=== PATIENT | female | born 1945 | race Hispanic/Latino ===

== ENCOUNTER 2019-06-23 09:35 | Emergency (ER) | payer OTHER ==
[~2019-06-23] VITALS: Ht 157.5 cm; Wt 91.6 kg
[~2019-06-23 09:35] MED LIST: ALENDRONATE SOD70 MG PO; AMLODIPINE BESYL5 MG PO; ASPIR 8181 MG; ASPIR 8181 MG PO; ASPIRIN ENTERIC81 MG; ATORVASTATIN CA20 MG PO; CELEBREX100 MG PO; CELEBREX200 MG; CLOPIDOGREL75 MG PO; COLACE100 MG PO; DILTIA XT120 MG; FOLIC ACID0.4 MG; FOLIC ACID1 MG PO; IBUPROFEN400 MG PO; LEVOTHYROXINE50 MCG PO; LOPRESSOR25 MG; LOSARTAN-HCTZ1 EAC2; LOSARTAN-HCTZ1 EAC2 PO; MECLIZINE HCL12.5 MG PO; METFORMIN HCL500 MG PO; METHOTREXATE2.5 MG PO; METOPROLOL TART25 MG PO; NEURONTIN100 MG PO; NEXIUM40 MG; NEXIUM40 MG PO; NORCO 5-325 TA1 EACH PO; NORVASC10 MG PO; PREDNISONE5 MG PO; TIZANIDINE HCL4 M1 PO; XANAX0.25 MG PO
--- OUTSIDE RECORDS SUMMARY | 2019-06-23 09:40 | XMS REPORT ---
Author Author [facility] Address Unknown Phone Unavailable Care Team Providers Care Drag Out Man Name Role Phone Allie COOK Unavailable Unavailable Problems This patient has no known problems. Allergies, Adverse Reactions, Alerts This patient has no known allergies or adverse reactions. Medications This patient has no known medications. Results Test Description Test Time Test Comments Text Results Atomic Results Result Comments SCR MAMM BILATERAL SCOTTIE CAD DIGITAL 2018-11-29 10:55:33 - SCR MAMM BILATERAL SCOTTIE CAD DIGITALBILATERAL DIGITAL SCREENING MAMMOGRAM 3D/2D WITH CAD: 11/28/2018CLINICAL: Asymptomatic. Digital breast tomosynthesis was performed in addition to routine CC and MLO views. Current mammographic images were evaluated by either a TouchPo Android POS M-Vu or a DocLogix ImageChecker CAD (computer aided detection system). Comparison is made to exams dated 11/22/2017 mammogram, 017 mammogram, and 09/23/2015 mammogram - [facility]. The tissue of both breasts is predominantly fatty. There are benign vascular calcifications in both breasts. There also is a benign mass and a calcification in the right breast. Additionally, there are benign calcifications and an intramammary node in the left breast. No suspicious mass, architectural distortion, malignant type calcification, or lymph node abnormality detected. Breast architecture is stable compared to prior exams.IMPRESSION: BENIGNThere is no mammographic evidence of malignancy. Resume annual screening mammography in one year. Carlos Jernigan M.D. ss/:11/29/2018 10:55:33 Cap Inspector: Ca SHEPARD, [facility] sent: BIRADS 1-2 Normal Mammogram BI-RADS: [address] CHEST [address] [address] Patient Name: GISSELL LO MR #: [id number] : 1945 Age/Sex: 72/F Req #: [id number] Adm Physician: Ordered by: SOLIS COOK MD Report #: [id number] Location: ER Room/Bed: Procedure: [id number] CT/CT CHEST W Exam Date: 07/25/17 Exam Time: 1330 REPORT STATUS: Signed CT chest pulmonary embolism protocol CPT code: 67832 INDICATION: Tachycardia, hypotension, dizziness and back pain TECHNIQUE: Thin collimation axial images obtained through the level of the pulmonary arteries with additional imaging through the chest following the uneventful administration of 100 cc of low osmolar, nonionic intravenous contrast. Images reconstructed into coronal and sagittal MIPs for complete evaluation of the tortuous and overlapping pulmonary vascular structures and to reduce patient radiation dose. RADIATION DOSE: Total DLP: 490 mGy*cm Estimated effective dose: (DLP x 0.015 x size factor) mSv CTDIvol has been reviewed. It is below the limits set by the Radiation Protocol Committee (RPC). COMPARISON: CTPA 07/17/2012. FINDINGS: Pulmonary artery: No filling defects are appreciated within the main, left, right, lobar or visualized segmental pulmonary arteries to suggest embolism. The right main pulmonary artery measures 3 cm in diameter. The left main portal artery measures 3.2 cm in diameter. The pulmonary trunk measures 2.9 cm in diameter. Aorta: The thoracic aorta is not aneurysmal. The timing of the contrast bolus is for the pulmonary artery. There are diffuse atherosclerotic calcifications. Lymph nodes: No enlarged axillary, supraclavicular, mediastinal, or hilar lymph nodes. Thyroid: Normal in size without mass in the visualized parenchyma.. Mediastinum: The heart is enlarged with coronary artery calcifications. No pericardial effusion. There is a small hiatal hernia. Lungs: Right Lung: Diffusely hyperinflated. No airspace opacities. There is diffuse bronchial wall thickening. Left Lung: Diffusely hyperinflated. No airspace opacities. There is mild bronchial wall thickening. Mild tracheobronchomalacia is present. No filling defects in the tracheobronchial tree Pleura: No pleural effusion or pleural based mass.. Abdomen: The gallbladder is absent. Visualized portions of the upper abdomen demonstrate no evidence of mass.. Bones: There are moderate degenerative changes of the spine. No compression deformities. No lytic or blastic lesions. Soft tissues: Mass in the medial right breast measures 11 mm (previously, 1.3 x 2.1 cm). No new masses have developed. IMPRESSION: 1. No evidence of pulmonary embolus. Prominent pulmonary arteries are suggestive of pulmonary artery hypertension. 2. COPD and bronchial wall thickening suggestive of chronic bronchitis. No pulmonary infiltrates. Mild tracheobronchomalacia. 3. Small hiatal hernia. Cholecystectomy. 4. Mass in the right breast is smaller. Signed by: Dr. Rosey Brock MD on 07/25/2017 2:23 PM Dictated By: ROSEY BROCK MD 1423 Transcribed By: CHRISTOPHER on 07/25/17 1423 COPY TO: SOLIS COOK MD CHEST SINGLE (PORTABLE) [place] [address] Patient Name: GISSELL LO MR #: [id number] : 1945 Age/Sex: 72/F Req #: [id number] Adm Physician: Ordered by: SOLIS COOK MD Report #: [id number] Location: ER Room/Bed: Procedure: [id number] DX/CHEST SINGLE (PORTABLE) Exam Date: 07/25/17 Exam Time: 1225 REPORT STATUS: Signed Portable chest x-ray INDICATION: Pain COMPARISON: Report of chest x-ray performed 07/17/2012; images could not be retrieved for review. FINDINGS: Frontal view of the chest obtained at 1212 hours. The cardiac silhouette is normal. The pulmonary vascular markings are normal. The lungs demonstrate no mass or infiltrate. The costophrenic angles are sharp. There is no pneumothorax. The osseous structures are intact and normal in morphology. IMPRESSION: No acute cardiopulmonary process. Signed by: Dr. Rosey Brock MD on 07/25/2017 12:54 PM Dictated By: ROSEY BROCK MD 1257 Transcribed By: CHRISTOPHER on 07/25/17 1253 COPY TO: SOLIS COOK MD
[2019-06-23] MEDS ORDERED: TETANUS/DIPHTHERIA TOX ADULT 0.5 ML SYR IM ONE (10:30)
[2019-06-23] MEDS ORDERED: ONDANSETRON HCL INJ 2MG/ML 2ML 2 MG/ML VIAL IV NR (10:30)
[2019-06-23] MEDS ORDERED: SODIUM CHLORIDE 0.9% 1000ML 1,000 ML IV ONE (10:30)
[2019-06-23] MEDS ORDERED: MORPHINE SULFATE 5 MG/ML VIAL IV NR (10:30)
[2019-06-23] MEDS ORDERED: LIDOCAINE 1% W/EPINEPHRINE 20 ML VIAL INJ ONE (10:45)
--- NOTE | 2019-06-23 10:47 | NUR ---
REFUSED PIV. EXPLAINED BY FAMILY IN [place]. PT INFORMED OF NEED FOR IV FOR IV MEDS FOR PAIN. PT CONTINUES TO REFUSE. MD NOTIFIED AND WILL CHG MEDS TO IM
--- NOTE | 2019-06-23 11:09 | Diagnostic Imaging Report ---
History: Fall, pain Comparison studies:None Technique: Axial images were obtained from the brain, face and cervical spine. Coronal and sagittal reconstructions obtained from the axial data. Dose modulation, iterative reconstruction, and/or weight based adjustment of the mA/kV was utilized to reduce the radiation dose to as low as reasonably achievable. Findings: Head CT: Scalp/skull: Frontoparietal scalp hematoma and laceration on the left measures up to 1.6 cm in depth. An additional laceration without underlying hematoma within the midline left frontal scalp is also demonstrated just above the left superior orbital rim. No fractures, blastic or lytic lesions. Extra-axial spaces: No masses. No fluid collections. Brain sulci: Mildly prominent. Ventricles: Normal in size and configuration. No hydrocephalus. Parenchyma: No abnormal densities. No masses, hemorrhage, acute or chronic cortical vascular insults. Sellar/suprasellar region: No abnormalities Craniocervical junction: Patent foramen magnum. No Chiari one malformation. Incidental findings: Calcifications of the carotid siphons. Maxillofacial CT: Soft tissues: Left frontal scalp laceration as described above. Small amount of soft tissue swelling overlying the left superior orbital rim. Bones: No fractures or bony abnormalities. . Orbits: No abnormalities. Paranasal sinuses: Clear. Cervical spine CT: Airway: Patent. Fractures: None. Soft tissues: No gross abnormalities. Atlantoaxial articulation: Intact. Alignment: Normal lordosis. No scoliosis. Retrolisthesis of C3 on C4. Cervicomedullary junction: No abnormalities. The foramen magnum is patent. Vertebrae: No infection or neoplasm. Degenerative changes: Multilevel cervical spondylosis with moderate disc height loss at C3-C4 and C6-C7. Posterior disc osteophyte complexes, facet arthrosis, and uncovertebral hypertrophy contribute to mild right neural foraminal stenosis at C4-C5 and mild bilateral neural foraminal stenosis C6-C7. No osseous compromise of the spinal canal. IMPRESSION: Head CT: 1. No acute intracranial abnormalities, particularly no hemorrhage. 2. 1.6 cm left frontal parietal scalp hematoma and laceration without underlying fracture. Facial CT: 1. Left superior orbital rim soft tissue swelling and left frontal laceration without underlying fracture. Cervical spine CT: 1. No acute osseous abnormality. 2. Cannot adequately evaluate for ligament, spinal cord and or vascular abnormalities. The images and preliminary report provided by the neuroradiology fellow were reviewed and a final report issued by Dr. Mor?n neuroradiology faculty on 06/23/2019 at 3:05 PM. Signed by: Dr. Stephanie Spencer M.D. on 06/23/2019 3:07 PM
[2019-06-23] MEDS ORDERED: MORPHINE SULFATE INJ 4 MG/ML INJ 1ML IV PRN (11:30)
[2019-06-23] MEDS ORDERED: ONDANSETRON HCL 4 MG ORAL DISINTEGRATING TAB PO NR (11:30)
[2019-06-23] MEDS ORDERED: MORPHINE SULFATE INJ 4 MG/ML INJ 1ML IM PRN (11:30)
--- NOTE | 2019-06-23 13:20 | Diagnostic Imaging Report ---
EXAMINATION: CHEST SINGLE (NOT PORTABLE) INDICATION: Trauma COMPARISON: None FINDINGS: LINES/TUBES:EKG leads overlie the chest. LUNGS:The lungs are moderately inflated. No focal consolidation or pulmonary edema. PLEURA:No pleural effusion or pneumothorax. MEDIASTINUM:The cardiomediastinal silhouette appears normal in size and shape. Atherosclerotic calcifications of the thoracic aorta. BONES/SOFT TISSUES:No acute osseous injury. ABDOMEN:No free air under the diaphragm. IMPRESSION: No evidence of acute osseous injury to the thorax. Clear lungs. Signed by: Aramis Chambers MD on 06/23/2019 1:17 PM
--- NOTE | 2019-06-23 13:23 | Diagnostic Imaging Report ---
EXAMINATION: SHOULDER LEFT COMPLETE, HUMERUS LEFT 2+VIEWS INDICATION: Trauma COMPARISON: None FINDINGS: AP radiograph of the left shoulder and AP and lateral radiographs of the left humerus were obtained. No acute fracture or dislocation. Alignment is anatomic. The soft tissues appear unremarkable. For intrathoracic findings please refer to the dedicated concurrently performed and reported chest radiograph. IMPRESSION: No acute osseous injury of the left shoulder or humerus. Signed by: Aramis Chambers MD on 06/23/2019 1:19 PM
--- NOTE | 2019-06-23 13:24 | Diagnostic Imaging Report ---
EXAMINATION: SP LUMBAR, COMPLETE MIN 4VW INDICATION: Trauma COMPARISON: None FINDINGS: AP, lateral and oblique images of the lumbar spine were obtained. No compression fracture. Vertebral body heights are well-maintained. Alignment is anatomic. There are multilevel degenerative changes of the lumbar spine with mild disc space narrowing, osteophyte formation, and facet arthropathy at the lower lumbar spine. Nonobstructive bowel gas pattern. Status post cholecystectomy. IMPRESSION: No acute osseous injury of the lumbar spine. Degenerative changes as above. Signed by: Aramis Chambers MD on 06/23/2019 1:21 PM
--- NOTE | 2019-06-23 13:26 | Diagnostic Imaging Report ---
EXAMINATION: HIPS BILAT TWO VWS(+/- PELVIS) INDICATION: Trauma COMPARISON: None FINDINGS: AP and frog-leg views of both hips and AP view of the pelvis were obtained. No acute fracture or dislocation. Alignment is anatomic. 4 findings of the lumbar spine, please refer to the concurrently performed and reported lumbar spine radiograph report. IMPRESSION: No acute osseous injury of the hips or pelvis. Signed by: Aramis Chambers MD on 06/23/2019 1:23 PM
--- NOTE | 2019-06-23 13:28 | Diagnostic Imaging Report ---
EXAMINATION: KNEE LEFT THREE VIEWS INDICATION: Trauma COMPARISON: None FINDINGS: AP and lateral images of the left knee were obtained. No acute fracture or dislocation. Alignment is anatomic. Moderate tricompartmental degenerative changes with joint space narrowing and osteophyte formation. No substantial knee joint effusion. IMPRESSION: No acute osseous injury of the left knee. Moderate tricompartmental degenerative changes as above. Signed by: Aramis Chambers MD on 06/23/2019 1:25 PM
[2019-06-23] MEDS ORDERED: HYDROCODONE/APAP 5MG-325MG TAB PO STA (13:42)
[2019-06-23 14:37] VITALS: BP 141/86
== END 2019-06-23 14:39 | disposition home or self-care (01) ==
LOC: ER 09:35
DX: S01.81XA Laceration without foreign body of other part of head, initial encounter (principal); S06.0X0A Concussion without loss of consciousness, initial encounter; S40.012A Contusion of left shoulder, initial encounter; S16.1XXA Strain of muscle, fascia and tendon at neck level, initial encounter; S80.02XA Contusion of left knee, initial encounter; Z23 Encounter for immunization; S39.012A Strain of muscle, fascia and tendon of lower back, initial encounter; Y92.009 Unspecified place in unspecified non-institutional (private) residence as the place of occurrence of the external cause; W01.0XXA Fall on same level from slipping, tripping and stumbling without subsequent striking against object, initial encounter; Y93.01 Activity, walking, marching and hiking; I10 Essential (primary) hypertension; E11.9 Type 2 diabetes mellitus without complications; Z79.84 Long term (current) use of oral hypoglycemic drugs
CPT/HCPCS: 12053; 70450; 70486; 71045; 72110; 72125; 73030; 73060; 73521; 73562; 90471; 90714; 99284; J2270; Q0162

== ENCOUNTER 2019-12-02 11:06 | Emergency (ER) | payer OTHER ==
[~2019-12-02] VITALS: Ht 157.5 cm; Wt 91.6 kg
--- NOTE | 2019-12-02 12:27 | Diagnostic Imaging Report ---
Examination: Single AP view of the chest. COMPARISON: Portable chest 06/23/2019 INDICATION: Patient not feeling well IMPRESSION: 1. Lines and Tubes: None 2. Lungs are well-inflated. Patchy perihilar opacities with mild bronchial wall thickening, which may reflect bronchitis. No consolidation or effusion. 3. Cardiomediastinal silhouette is normal. Pulmonary vasculature is normal. 4. No acute bony abnormalities. Signed by: Dr. Gab Marr M.D. on 12/02/2019 12:24 PM
[2019-12-02 12:30] LABS: BASOPHILS # (AUTO) 0.1 (0.0-0.1); BASOPHILS % 0.6 % (0.0-1.0); EOSINOPHILS # (AUTO) 0.2 (0.0-0.4); EOSINOPHILS % 1.9 % (0.0-6.0); HEMATOCRIT 34.9 % (34.2-44.1); HEMOGLOBIN 11.3 g/dL (12.0-16.0); LYMPHOCYTES # (AUTO) 1.9 (1.0-3.2); LYMPHOCYTES % 23.7 % (18.0-39.1); MEAN CORPUSCULAR HEMOGLOBIN 30.1 pg (28-32); MEAN CORPUSCULAR HGB CONC 32.4 g/dL (31-35); MEAN CORPUSCULAR VOLUME 93.1 fL (81-99); MONOCYTES # (AUTO) 0.7 (0.2-0.8); MONOCYTES % 8.5 % (4.4-11.3); NEUTROPHILS # (AUTO) 5.1 (2.1-6.9); PLATELET COUNT 189 x10e3/uL (140-360); RED BLOOD COUNT 3.75 x10e6/uL (3.6-5.1); RED CELL DISTRIBUTION WIDTH 16.2 % (11.7-14.4)
[2019-12-02] MEDS: SODIUM CHLORIDE 0.9% 500ML 500 ML IV STA (12:40)
[2019-12-02 12:43] LABS: INR 0.91; PROTHROMBIN TIME 12.8 seconds (11.9-14.5)
[2019-12-02 12:44] LABS: PARTIAL THROMBOPLASTIN TIME 17.6 seconds (23.8-35.5)
[2019-12-02 12:45] LABS: CALCIUM 9.8 mg/dL (8.4-10.2); POTASSIUM 3.8 mmol/L (3.5-5.1)
[2019-12-02 12:59] LABS: ALBUMIN 3.7 g/dL (3.5-5.0); ALBUMIN/GLOBULIN RATIO 1.2 (0.8-2.0); ANION GAP 10.8 mmol/L (8-16); CREATININE, SERUM 1.04 mg/dL (0.57-1.11)
[2019-12-02 13:06] LABS: CREATINE KINASE MB 1.7 ng/mL (0-5.0)
[2019-12-02] MEDS: METOPROLOL TARTRATE INJ 1 MG/ML VIAL IV ONE (13:52)
--- NOTE | 2019-12-02 13:57 | NUR ---
5MG IV METOPROLOL GIVEN SIVP, PT REMAINS IN A-FLUTTER RATE OF 102 BP: 114/60.
--- NOTE | 2019-12-02 14:06 | NUR ---
Nestor Mejia SALES REPRESENTATIVE DOOR TO DOOR, Dang-anyier is pts baseline rythm and no further intervention needed. Pt ready for DC home. Pt verbalized understanding of ED dc, piv dc'd, cath intact.
[2019-12-02 14:08] VITALS: BP 104/73
== END 2019-12-02 14:33 | disposition home or self-care (01) ==
LOC: ER 11:06
DX: J02.9 Acute pharyngitis, unspecified (principal); K21.0 Gastro-esophageal reflux disease with esophagitis; I48.20 Chronic atrial fibrillation, unspecified
CPT/HCPCS: 36415; 71045; 80053; 82550; 82553; 84484; 85025; 85610; 85730; 93005; 99284; J7040

== ENCOUNTER 2021-10-11 14:28 | Emergency (ER) | payer MEDICARE, OTHER ==
[~2021-10-11] VITALS: Ht 157.5 cm; Wt 91.6 kg
[2021-10-11 16:12] VITALS: BP 152/80
== END 2021-10-11 16:00 | disposition home or self-care (01) ==
LOC: ER 14:45
DX: R41.0 Disorientation, unspecified (principal); I10 Essential (primary) hypertension; E11.9 Type 2 diabetes mellitus without complications; E03.9 Hypothyroidism, unspecified; E78.5 Hyperlipidemia, unspecified; F41.9 Anxiety disorder, unspecified; E78.00 Pure hypercholesterolemia, unspecified
CPT/HCPCS: 70450; 99283

== ENCOUNTER 2022-09-28 06:23 | Observation (INO) | payer MEDICARE ==
[2022-09-25 09:32] LABS: BASOPHILS # (AUTO) 0.1 (0.0-0.1); BASOPHILS % 1.1 % (0.0-1.0); EOSINOPHILS # (AUTO) 0.2 (0.0-0.4); EOSINOPHILS % 3.7 % (0.0-6.0); HEMATOCRIT 38.1 % (34.2-44.1); HEMOGLOBIN 11.2 g/dL (12.0-16.0); LYMPHOCYTES # (AUTO) 1.1 (1.0-3.2); LYMPHOCYTES % 24.6 % (18.0-39.1); MEAN CORPUSCULAR HEMOGLOBIN 28.1 pg (28-32); MEAN CORPUSCULAR HGB CONC 29.4 g/dL (31-35); MEAN CORPUSCULAR VOLUME 95.5 fL (81-99); MONOCYTES # (AUTO) 0.6 (0.2-0.8); MONOCYTES % 12.9 % (4.4-11.3); NEUTROPHILS # (AUTO) 2.7 (2.1-6.9); NEUTROPHILS % 57.7 % (38.7-80.0); PLATELET COUNT 231 x10e3/uL (140-360); RED BLOOD COUNT 3.99 x10e6/uL (3.6-5.1); RED CELL DISTRIBUTION WIDTH 17.8 % (11.7-14.4)
[~2022-09-28] VITALS: Ht 154.9 cm; Wt 83.5 kg
[~2022-09-28 06:23] MED LIST changes: +CETIRIZINE HCL10 MG PO; +CLONIDINE HCL0.1 MG PO; +ELIQUIS5 MG PO; +FEROSUL325 MG PO; +FUROSEMIDE20 MG PO; +LOSARTAN POTAS100 MG PO; +METOPROLOL SUCC25 MG PO; +PROTONIX20 MG PO; +TRAZODONE HCL50 MG PO
[2022-09-28] MEDS ORDERED: CELECOXIB 200 MG CAP ONE (07:08)
[2022-09-28] MEDS ORDERED: DEXAMETHASONE SOD PHOS 10 MG/1 ML VIAL ONE (07:08)
[2022-09-28] MEDS ORDERED: GABAPENTIN 300 MG CAP ONE (07:09)
[2022-09-28] MEDS ORDERED: CEFAZOLIN SODIUM 2 GM ONE (07:09)
[2022-09-28] MEDS ORDERED: ROPIVACAINE 246.25 MG, EPINEPHRINE HCL 1:1000 1ML 0.5 MG, CLONIDINE HCL 0.08 MG, KETORO... INJ ONE ×5 (08:00)
[2022-09-28] MEDS ORDERED: Vancomycin IV 1,000 MG ONE (08:53)
[2022-09-28] MEDS ORDERED: TRANEXAMIC ACID 20 ML ONE (08:54)
[2022-09-28] MEDS ORDERED: SODIUM CHLORIDE 0.9% 500ML 500 ML ONE (08:54)
[2022-09-28] MEDS ORDERED: HYDROCODONE/APAP 5MG-325MG TAB PO PRN (10:45)
[2022-09-28] MEDS ORDERED: ONDANSETRON HCL INJ 2MG/ML 2ML 2 MG/ML VIAL IV PRN (10:45)
[2022-09-28] MEDS ORDERED: DIPHENHYDRAMINE HCL INJ 50 MG/ML VIAL IV PRN (10:45)
[2022-09-28] MEDS ORDERED: ZOLPIDEM TARTRATE 5 MG TAB PO PRN (10:45)
[2022-09-28] MEDS ORDERED: DOCUSATE SODIUM 100 MG CAP PO PRN (10:45)
[2022-09-28] MEDS ORDERED: ACETAMINOPHEN 650 MG SUPP PR PRN (10:45)
[2022-09-28] MEDS ORDERED: FENTANYL CITRATE/PF 100MCG/2 ML INJ ONE ×2 (12:12→13:01)
[2022-09-28] MEDS ORDERED: ROPIVACAINE 0.5% 5 MG/ML 30 ML SDV ONE (12:53)
[2022-09-28] MEDS ORDERED: ONDANSETRON HCL INJ 2MG/ML 2ML 2 MG/ML VIAL ONE ×2 (14:13→17:14)
[2022-09-28 15:25] VITALS: BP_SYST 133; BP_SYST 170; BP_DIAS 75; BP_DIAS 76
[2022-09-28] MEDS: SODIUM CHLORIDE 0.9% 1000ML 1,000 ML IV SCH (15:43)
[2022-09-28] MEDS ORDERED: FAMOTIDINE 20 MG/2 ML VIAL IV ONE (17:14)
[2022-09-28] MEDS ORDERED: PROPOFOL IV EMULSION 10 MG/ML 20 ML VIAL ONE (17:14)
[2022-09-28] MEDS ORDERED: SEVOFLURANE INHAL SOLN 250 ML PEN BTL ONE (17:14)
[2022-09-28] MEDS ORDERED: POVIDONE IODINE 0.05% 0.05 % ML PO ONE (17:14)
[2022-09-28] MEDS ORDERED: LIDOCAINE HCL 2% LOCAL INJ 5 ML SDV VIAL INJ ONE (17:14)
[2022-09-28] MEDS ORDERED: METOCLOPRAMIDE HCL 10 MG/2ML VIAL ONE (17:14)
[2022-09-28] MEDS: CELECOXIB 100 MG CAP PO SCH (17:36)
[2022-09-28] MEDS ORDERED: ACETAMINOPHEN 1000 MG/100 ML IV PRN (18:00)
[2022-09-28] MEDS ORDERED: HYDRALAZINE HCL 20 MG/ML VIAL IV PRN (18:45)
[2022-09-28 20:00] VITALS: BP 140/71
[2022-09-28] MEDS: METOPROLOL SUCCINATE 25 MG TAB XL PO SCH (20:43)
[2022-09-28] MEDS: LOSARTAN POTASSIUM 100 MG TAB PO SCH (20:47)
[2022-09-28] MEDS ORDERED: TRAZODONE HCL 50 MG TAB PO SCH (21:00)
[2022-09-28] MEDS ORDERED: ATORVASTATIN 20 MG TAB PO SCH (21:00)
[2022-09-28 22:06] VITALS: BP 140/71
[2022-09-29] VITALS: BP 167/84
[2022-09-29 04:00] VITALS: BP 175/82
[2022-09-29] MEDS: SODIUM CHLORIDE 0.9% 1000ML 1,000 ML IV SCH (05:14)
[2022-09-29] MEDS: HYDROCODONE/APAP 7.5MG-325MG 1 EA TAB PO PRN ×3 (05:29→13:09)
[2022-09-29 05:39] LABS: HEMOGLOBIN 8.9 g/dL (12.0-16.0)
[2022-09-29] MEDS ORDERED: PANTOPRAZOLE SOD 40 MG TABEC PO SCH (07:30)
[2022-09-29 08:01] VITALS: BP 129/61
[2022-09-29] MEDS ORDERED: GABAPENTIN 100 MG CAP PO SCH (09:00)
[2022-09-29] MEDS ORDERED: FOLIC ACID 1 MG TAB PO SCH (09:00)
[2022-09-29] MEDS ORDERED: LORATADINE 10 MG TAB PO SCH (09:00)
[2022-09-29] MEDS: LOSARTAN POTASSIUM 100 MG TAB PO SCH (09:05)
[2022-09-29] MEDS: METOPROLOL SUCCINATE 25 MG TAB XL PO SCH (09:05)
[2022-09-29] MEDS: CELECOXIB 100 MG CAP PO SCH (09:06)
[2022-09-29] MEDS ORDERED: ONDANSETRON HCL 4 MG ORAL DISINTEGRATING TAB PO PRN (09:45)
[2022-09-29] MEDS ORDERED: ONDANSETRON HCL 4 MG ORAL DISINTEGRATING TAB SL PRN (10:00)
[2022-09-29 11:54] VITALS: BP 143/63
== END 2022-09-29 15:04 | disposition home or self-care (01) ==
LOC: OR 06:23 → PACU V 11:01 → MED/SURG 15:25
PROVIDERS: ADMIT Specialist; ATTEND Specialist
DX: M17.0 Bilateral primary osteoarthritis of knee (principal); I10 Essential (primary) hypertension; E78.5 Hyperlipidemia, unspecified; Z86.73 Personal history of transient ischemic attack (TIA), and cerebral infarction without residual deficits; Z20.822 Contact with and (suspected) exposure to COVID-19; Z01.818 Encounter for other preprocedural examination; K21.9 Gastro-esophageal reflux disease without esophagitis; K29.70 Gastritis, unspecified, without bleeding
CPT/HCPCS: 0223U; 27447; 36415 ×2; 71046; 73560; 85014; 85018; 85025; 86850; 86900; 93005; 94799 ×2; 96361; 97110; 97116 ×2; 97162; 97530 ×3; C1713 ×2; C1776 ×3; G0378 ×2; J0131; J0171; J0360; J0690 ×2; J1100; J1885; J2001; J2405; J2704; J2765; J2795; J3010; J3370; J7030 ×2; J7040; S0164

== ENCOUNTER 2023-01-03 23:39 | Inpatient (IN) | payer MEDICARE ==
[~2023-01-03] VITALS: Ht 165.1 cm; Wt 83.5 kg
[2023-01-04] MEDS ORDERED: SODIUM CHLORIDE 0.9% 1000ML 1,000 ML IV ONE
[2023-01-04] MEDS ORDERED: ACETAMINOPHEN 325 MG TAB PO ONE
[2023-01-04] MEDS ORDERED: ACETAMINOPHEN 325 MG TAB ONE ×2 (00:03→00:22)
[2023-01-04 00:28] LABS: BASOPHILS # (AUTO) 0.1 (0.0-0.1); BASOPHILS % 0.4 % (0.0-1.0); EOSINOPHILS # (AUTO) 0.1 (0.0-0.4); EOSINOPHILS % 0.4 % (0.0-6.0); HEMATOCRIT 33.7 % (34.2-44.1); HEMOGLOBIN 10.9 g/dL (12.0-16.0); LYMPHOCYTES % 7.2 % (18.0-39.1); MEAN CORPUSCULAR HEMOGLOBIN 28.4 pg (28-32); MEAN CORPUSCULAR HGB CONC 32.3 g/dL (31-35); MEAN CORPUSCULAR VOLUME 87.8 fL (81-99); MONOCYTES # (AUTO) 1.5 (0.2-0.8); MONOCYTES % 11.4 % (4.4-11.3); NEUTROPHILS # (AUTO) 10.8 (2.1-6.9); NEUTROPHILS % 80.2 % (38.7-80.0); PLATELET COUNT 239 x10e3/uL (140-360); RED BLOOD COUNT 3.84 x10e6/uL (3.6-5.1); RED CELL DISTRIBUTION WIDTH 15.9 % (11.7-14.4)
[2023-01-04 00:35] LABS: CLARITY,URINE CLOUDY (CLEAR); COLOR,URINE YELLOW (YELLOW)
[2023-01-04 00:36] LABS: KETONES,URINE NEGATIVE (NEGATIVE); LEUKOCYTE ESTERASE ,URINE TRACE (NEGATIVE); NITRITE,URINE NEGATIVE (NEGATIVE); PROTEIN,URINE DIPSTICK 2+ (NEGATIVE); URINE UROBILINOGEN 4 mg/dL (0.2 - 1)
[2023-01-04 00:43] LABS: ALANINE AMINOTRANSFERASE 16 IU/L (0-55); ALBUMIN 3.3 g/dL (3.5-5.0); ALBUMIN/GLOBULIN RATIO 0.7 (0.8-2.0); ALKALINE PHOSPHATASE 90 IU/L (40-150); ANION GAP 16.8 mmol/L (8-16); BLOOD UREA NITROGEN 13 mg/dL (7-26); BUN/CREATININE RATIO 13 (6-25); CALCIUM 9.5 mg/dL (8.4-10.2); CARBON DIOXIDE 21 mmol/L (22-29); CHLORIDE 101 mmol/L (98-107); CREATINE KINASE 31 IU/L (29-168); CREATININE, SERUM 1.01 mg/dL (0.57-1.11); GLUCOSE 146 mg/dL (74-118); POTASSIUM 3.8 mmol/L (3.5-5.1); SODIUM 135 mmol/L (136-145)
[2023-01-04 00:59] LABS: BACTERIA,URINE MANY /HPF; EPITHELIAL CELLS,URINE MANY /LPF; RBC,URINE >50 /HPF (0-5); RENAL EPITHELIAL CELLS,URINE FEW; TRANSITIONAL EPI CELLS,URINE MODERATE; WBC,URINE (MAN) 21-50 /HPF (0-5)
[2023-01-04] MEDS ORDERED: IOPAMIDOL 370 MG/ML 100 ML INFUS..BTL INJ ONE (01:15)
[2023-01-04] MEDS: SODIUM CHLORIDE 0.9% 1000ML 1,000 ML IV SCH ×3 (04:21→15:50)
[2023-01-04] MEDS: ACETAMINOPHEN 325 MG TAB PO PRN ×3 (08:17→21:03)
[2023-01-04] MEDS ORDERED: HYDROCHLOROTHIA25 MG PO (08:26)
[2023-01-04] MEDS ORDERED: PREDNISONE5 MG PO (08:26)
[2023-01-04] MEDS ORDERED: AMLODIPINE BESYL5 MG PO (08:26)
[2023-01-04] MEDS ORDERED: PROVENTIL HFA6.7 GM INH (08:30)
[2023-01-04 09:15] LABS: CREATINE KINASE 31 IU/L (29-168)
[2023-01-04 16:04] VITALS: BP 153/91
[2023-01-04 17:06] VITALS: BP 153/91
[2023-01-04 17:12] VITALS: BP 53/91
[2023-01-04 19:38] LABS: CREATINE KINASE 39 IU/L (29-168)
[2023-01-04 20:00] VITALS: BP 160/79
[2023-01-05] VITALS (10 sets, daily range): BP systolic 144–176; BP diastolic 71–83
[2023-01-05] MEDS: ACETAMINOPHEN 325 MG TAB PO PRN ×4 (03:27→21:02)
[2023-01-05] MEDS: SODIUM CHLORIDE 0.9% 1000ML 1,000 ML IV SCH ×3 (06:21→21:14)
[2023-01-05] MEDS ORDERED: PREDNISONE 5 MG TAB PO PRN (20:15)
[2023-01-05] MEDS ORDERED: ALBUTEROL SULFATE HFA 8GM INHALATION AEROSOL INH PRN (20:15)
[2023-01-05] MEDS: TRAZODONE HCL 50 MG TAB PO SCH (21:08)
[2023-01-05] MEDS: ATORVASTATIN 20 MG TAB PO SCH (21:09)
[2023-01-05] MEDS: CLONIDINE HCL 0.1 MG TAB PO SCH (21:09)
[2023-01-05] MEDS: APIXABAN 5 MG TABLET PO SCH (22:18)
[2023-01-05] MEDS: METOPROLOL SUCCINATE 25 MG TAB XL PO SCH (22:39)
[2023-01-06] VITALS (8 sets, daily range): BP systolic 112–160; BP diastolic 61–89
[2023-01-06] MEDS: SODIUM CHLORIDE 0.9% 1000ML 1,000 ML IV SCH (03:00)
[2023-01-06] MEDS: ACETAMINOPHEN 325 MG TAB PO PRN (05:33)
[2023-01-06 08:16] LABS: BASOPHILS % 0.5 % (0.0-1.0); EOSINOPHILS # (AUTO) 0.2 (0.0-0.4); EOSINOPHILS % 2.3 % (0.0-6.0); HEMATOCRIT 28.4 % (34.2-44.1); HEMOGLOBIN 9.2 g/dL (12.0-16.0); LYMPHOCYTES # (AUTO) 0.9 (1.0-3.2); LYMPHOCYTES % 10.4 % (18.0-39.1); MEAN CORPUSCULAR HEMOGLOBIN 28.3 pg (28-32); MEAN CORPUSCULAR HGB CONC 32.4 g/dL (31-35); MEAN CORPUSCULAR VOLUME 87.4 fL (81-99); MONOCYTES # (AUTO) 1.2 (0.2-0.8); MONOCYTES % 13.9 % (4.4-11.3); NEUTROPHILS # (AUTO) 6.3 (2.1-6.9); NEUTROPHILS % 72.6 % (38.7-80.0); PLATELET COUNT 258 x10e3/uL (140-360); RED BLOOD COUNT 3.25 x10e6/uL (3.6-5.1)
[2023-01-06 08:43] LABS: ALBUMIN 2.4 g/dL (3.5-5.0); ALBUMIN/GLOBULIN RATIO 0.6 (0.8-2.0); CALCIUM 8.3 mg/dL (8.4-10.2); CREATININE, SERUM 0.75 mg/dL (0.57-1.11)
[2023-01-06] MEDS ORDERED: APIXABAN 5 MG TABLET PO SCH (09:00)
[2023-01-06] MEDS ORDERED: METOPROLOL SUCCINATE 25 MG TAB XL PO SCH (09:00)
[2023-01-06] MEDS: LOSARTAN POTASSIUM 100 MG TAB PO SCH (10:30)
[2023-01-06] MEDS: GABAPENTIN 100 MG CAP PO SCH ×2 (10:30→19:09)
[2023-01-06] MEDS: HYDROCHLOROTHIAZIDE 25 MG TAB PO SCH (10:31)
[2023-01-06] MEDS: FERROUS SULFATE 325 MG TAB PO SCH (10:31)
[2023-01-06] MEDS: LORATADINE 10 MG TAB PO SCH (10:32)
[2023-01-06] MEDS: APIXABAN 5 MG TABLET PO SCH ×2 (10:32→19:09)
[2023-01-06] MEDS: PANTOPRAZOLE SOD 40 MG TABEC PO SCH (10:32)
[2023-01-06] MEDS: FOLIC ACID 1 MG TAB PO SCH (10:32)
[2023-01-06] MEDS: METOPROLOL SUCCINATE 25 MG TAB XL PO SCH ×2 (10:32→19:09)
[2023-01-06] MEDS: ASPIRIN 81 MG CHEW TAB PO SCH (10:33)
[2023-01-06] MEDS ORDERED: HYDRALAZINE HCL 20 MG/ML VIAL IV PRN (11:30)
[2023-01-06] MEDS ORDERED: POTASSIUM CHLORIDE 20 MEQ TAB CR PO ONE (11:45)
[2023-01-06] MEDS ORDERED: Vancomycin IV 1 GM in SODIUM CHLORIDE 0.9% 250ML 250 ML IV ONE (12:00)
[2023-01-06] MEDS: CLONIDINE HCL 0.1 MG TAB PO SCH (21:18)
[2023-01-06] MEDS: TRAZODONE HCL 50 MG TAB PO SCH (21:18)
[2023-01-06] MEDS: ATORVASTATIN 20 MG TAB PO SCH (21:18)
[2023-01-07] VITALS (8 sets, daily range): BP systolic 122–148; BP diastolic 66–74
[2023-01-07 07:14] LABS: ANION GAP 12.5 mmol/L (8-16); CALCIUM 8.3 mg/dL (8.4-10.2); CREATININE, SERUM 0.73 mg/dL (0.57-1.11); MAGNESIUM 1.5 MG/DL (1.3-2.1); POTASSIUM 3.5 mmol/L (3.5-5.1)
[2023-01-07] MEDS ORDERED: Vancomycin IV 1 GM in SODIUM CHLORIDE 0.9% 250ML 250 ML IV ONE (11:30)
[2023-01-07] MEDS ORDERED: COLACE100 M1 PO (12:02)
[2023-01-07] MEDS ORDERED: AMOX TR-K CLV1 EAC2 PO (12:02)
[2023-01-07] MEDS: APIXABAN 5 MG TABLET PO SCH ×2 (12:19→18:14)
[2023-01-07] MEDS: FERROUS SULFATE 325 MG TAB PO SCH (12:19)
[2023-01-07] MEDS: LOSARTAN POTASSIUM 100 MG TAB PO SCH (12:20)
[2023-01-07] MEDS: GABAPENTIN 100 MG CAP PO SCH ×2 (12:20→18:13)
[2023-01-07] MEDS: METOPROLOL SUCCINATE 25 MG TAB XL PO SCH ×2 (12:20→18:14)
[2023-01-07] MEDS: LORATADINE 10 MG TAB PO SCH (12:20)
[2023-01-07] MEDS: PANTOPRAZOLE SOD 40 MG TABEC PO SCH (12:20)
[2023-01-07] MEDS: FOLIC ACID 1 MG TAB PO SCH (12:20)
[2023-01-07] MEDS: ASPIRIN 81 MG CHEW TAB PO SCH (12:21)
[2023-01-07] MEDS: HYDROCHLOROTHIAZIDE 25 MG TAB PO SCH (12:22)
[2023-01-07] MEDS ORDERED: POTASSIUM CHLORIDE 20 MEQ TAB CR PO ONE (12:30)
[2023-01-07] MEDS: DOCUSATE SODIUM 100 MG CAP PO SCH (18:14)
[2023-01-07] MEDS: CLONIDINE HCL 0.1 MG TAB PO SCH (20:50)
[2023-01-07] MEDS: ATORVASTATIN 20 MG TAB PO SCH (20:51)
[2023-01-07] MEDS: TRAZODONE HCL 50 MG TAB PO SCH (20:51)
[2023-01-08 00:40] VITALS: BP 122/65
[2023-01-08] MEDS ORDERED: SODIUM CHLORIDE 0.9% 250ML 250 ML ONE (02:10)
[2023-01-08 03:48] VITALS: BP 133/57
[2023-01-08 08:00] VITALS: BP 131/68
[2023-01-08 08:36] VITALS: BP 131/68
[2023-01-08] MEDS ORDERED: BISACODYL 5 MG TAB EC PO SCH (09:00)
[2023-01-08] MEDS: DOCUSATE SODIUM 100 MG CAP PO SCH (09:26)
[2023-01-08] MEDS: LOSARTAN POTASSIUM 100 MG TAB PO SCH (09:27)
[2023-01-08] MEDS: LORATADINE 10 MG TAB PO SCH (09:28)
[2023-01-08] MEDS: METOPROLOL SUCCINATE 25 MG TAB XL PO SCH (09:28)
[2023-01-08] MEDS: PANTOPRAZOLE SOD 40 MG TABEC PO SCH (09:28)
[2023-01-08] MEDS: FERROUS SULFATE 325 MG TAB PO SCH (09:29)
[2023-01-08] MEDS: APIXABAN 5 MG TABLET PO SCH (09:29)
[2023-01-08] MEDS: ASPIRIN 81 MG CHEW TAB PO SCH (09:29)
[2023-01-08 12:08] VITALS: BP 138/74
[2023-01-09] MEDS ORDERED: AZITHROMYCIN 250 MG TAB PO SCH (03:00)
== END 2023-01-08 12:48 | disposition home or self-care (01) | DRG 194 ==
LOC: ER 23:48 → ERHOLD 01-04 02:50 → MED/SURG2 01-04 14:40 → OBSVTOIN 01-06 09:18
PROVIDERS: ADMIT Internal Medicine; ATTEND Internal Medicine
DX: J18.9 Pneumonia, unspecified organism (principal); D84.9 Immunodeficiency, unspecified; N39.0 Urinary tract infection, site not specified; I10 Essential (primary) hypertension; K21.9 Gastro-esophageal reflux disease without esophagitis; E78.00 Pure hypercholesterolemia, unspecified; K57.30 Diverticulosis of large intestine without perforation or abscess without bleeding; K59.09 Other constipation; M06.9 Rheumatoid arthritis, unspecified; Z86.73 Personal history of transient ischemic attack (TIA), and cerebral infarction without residual deficits; Z79.82 Long term (current) use of aspirin
CPT/HCPCS: 36415; 71045; 74177; 80048; 80053; 81001; 82550; 82553; 83605; 83735; 84484; 85025; 87040; 87086; 93005; 94799; 96361; 99285; G0378; J0692; J2543; J7030; J7050; Q9967